=== PATIENT | male | born 1955 | race Caucasian/White ===

== ENCOUNTER 2018-01-06 13:00 | Emergency (ER) | payer OTHER ==
[~2018-01-06] VITALS: Ht 190.5 cm; Wt 107.0 kg
--- NOTE | 2018-01-06 14:01 | RAD ---
3 views right hand 01/06/2018 3:38 PM Indication: trauma Comparison: None Findings: There is anterior dislocation of the right fourth middle phalanx at the PIP joint. There is some proximal subluxation of the middle phalanx approximately 1 cm. No definitive fracture is identified. Impression: Anterior dislocation of the fourth middle phalanx at the PIP joint. Postreduction radiographs recommended
[2018-01-06] MEDS ORDERED: LIDOCAINE 2% 20 ML VIAL. IJ ONE (14:15)
[2018-01-06 14:26] LABS: CLARITY,URINE HAZY; COLOR,URINE YELLOW
[2018-01-06 14:27] LABS: BACTERIA,URINE FEW /HPF (0-FEW); BILIRUBIN,URINE NEG (NEG); GLUCOSE,URINE NEG (NEG); HYALINE CASTS, URINE OCC /HPF; NITRITE,URINE NEG (NEG); RBC,URINE OCC /HPF (0-2); SQUAMOUS EPITHELIAL CELL,UR OCC /LPF; UROBILINOGEN,URINE 0.2 mg/dL (0.2 mg/dL); WBC,URINE OCC /HPF (0-4)
--- NOTE | 2018-01-06 14:39 | PHYS DOC ---
Past History Past Medical History: No Pertinent History Past Surgical History: No Surgical History Alcohol Use: None Drug Use: None Adult General Chief Complaint Chief Complaint: MULTIPLE COMPLAINTS HPI HPI Patient is a 62 year old M who presents with injury to his right hand. Faizan was working with is worse when he suffered a pulling injury to his right hand. He feels that his fourth finger on his right hand is dislocated. He also notes a bruise on the left elbow and right posterior ribs. He denies abdominal pain. He denies difficulty breathing. He denies head or neck injury. He denies back pain. He has no other associated symptoms. He has no exacerbating or relieving factors. Review of Systems Review of Systems Constitutional: Denies fever or chills [] Eyes: Denies change in visual acuity, redness, or eye pain [] HENT: Denies nasal congestion or sore throat [] Respiratory: Denies cough or shortness of breath [] Cardiovascular: No additional information not addressed in HPI [] GI: Denies abdominal pain, nausea, vomiting, bloody stools or diarrhea [] : Denies dysuria or hematuria [] Musculoskeletal: Denies back pain Integument: Denies rash or skin lesions [] Neurologic: Denies headache, focal weakness or sensory changes [] Endocrine: Denies polyuria or polydipsia [] All other systems were reviewed and found to be within normal limits, except as documented in this note. Family History Family History No Pertinent family medical history was reported Current Medications Current Medications Current Medications Medications (Trade) Dose Ordered Sig/[facility] Start Time Stop Time Status Last Admin Dose Admin Lidocaine HCl 20 ml 1X ONCE 01/06/18 14:15 01/06/18 14:16 DC 01/06/18 14:15 20 ML Allergies Allergies Allergies Coded Allergies Type Severity Reaction Last Updated Verified No Known Drug Allergies 03/28/16 No Physical Exam Physical Exam Constitutional: Well developed, well nourished, no acute distress, non-toxic appearance. [] HENT: Normocephalic, atraumatic, Eyes: EOMI, conjunctiva normal, no discharge. [] Neck: Normal range of motion, no tenderness, supple, no stridor. [] Cardiovascular:Heart rate regular rhythm, no murmur [] Lungs & Thorax: Bilateral breath sounds clear to auscultation [] Abdomen: Bowel sounds normal, soft, no tenderness, no masses, no pulsatile masses. [] Skin: Warm, dry, no erythema, no rash. [] Back: No tenderness, no CVA tenderness. [] Extremities: No tenderness, no cyanosis, no clubbing, ROM intact, no edema. [] With the exception of swelling over the right fourth finger PIP joint consistent with dislocation Neurologic: Alert and oriented X 3, normal motor function, normal sensory function, no focal deficits noted. [] Psychologic: Affect normal, judgement normal, mood normal. [] Current Patient Data Vital Signs Vital Signs Date Time Temp Pulse Resp B/P (MAP) Pulse Ox O2 Delivery O2 Flow Rate FiO2 01/06/18 13:44 98.2 86 18 99 Room Air Lab Results Laboratory Tests Test 01/06/18 13:56 Urine Collection Type Unknown Urine Color Yellow Urine Clarity Hazy Urine pH 5.5 Urine Specific [place] 1.025 Urine Protein Neg (NEG-TRACE) Urine Glucose (UA) Neg mg/dL (NEG) Urine Ketones (Stick) Trace mg/dL (NEG) Urine Blood Neg (NEG) Urine Nitrite Neg (NEG) Urine Bilirubin Neg (NEG) Urine Urobilinogen Dipstick 0.2 mg/dL (0.2 mg/dL) Urine Leukocyte Esterase Neg (NEG) Urine RBC Occ /HPF (0-2) Urine WBC Occ /HPF (0-4) Urine Squamous Epithelial Cells Occ /LPF Urine Bacteria Few /HPF (0-FEW) Urine Hyaline Casts Occ /HPF Urine Mucus Slight /LPF EKG EKG [] Radiology/Procedures Radiology/Procedures X-ray right hand - anterior dislocation of the right fourth finger PIP Impressions: Procedure: 2% lidocaine was used to perform a digital block on the right fourth finger. Traction was applied and the PIP joint was reduced Course & Med Decision Making Course & Med Decision Making Pertinent Labs and Imaging studies reviewed. (See chart for details) Faizan denies abdominal pain. He had no pain on palpation. He states that he will return to the emergency room if he develops new or worsening symptoms. He declines further imaging. Imaging was offered due to potential risk for kidney injury with bruising on his right flank. He does not believe that he has an injury to his kidney and would not like to have the CT scan at this time Dragon Disclaimer Dragon Disclaimer This electronic medical record was generated, in whole or in part, using a voice recognition dictation system. Departure Departure: Impression: Primary Impression: Dislocation of PIP joint of finger Disposition: 01 HOME, SELF-CARE Condition: STABLE Referrals: SAMMIE SHAHID (PCP) Patient Instructions: Finger Dislocation Additional Instructions: Faizan was seen in the emergency department after an injury to his hand. No emergency medical condition was found on history or physical exam. He was found have a dislocation of his fourth finger on his right hand. His finger was numbed and the joint was reduced with traction. His finger was splinted. He is encouraged to return to the emergency room if he develops new or worsening symptoms. He is also advised follow-up with his primary care doctor as needed for further management. Problem Qualifiers Primary Impression: Dislocation of PIP joint of finger Encounter type: initial encounter Qualified Codes: S63.289A - Dislocation of proximal interphalangeal joint of unspecified finger, initial encounter NICHOLAS ARREDONDO MD Jan 06, 2018 14:39
[2018-01-06 14:53] VITALS: BP 153/94
== END 2018-01-06 14:54 | disposition home or self-care (01) ==
LOC: ER 13:00
DX: S63.284A Dislocation of proximal interphalangeal joint of right ring finger, initial encounter (principal); S50.01XA Contusion of right elbow, initial encounter; S20.211A Contusion of right front wall of thorax, initial encounter; X58.XXXA Exposure to other specified factors, initial encounter; Y93.89 Activity, other specified; Y99.8 Other external cause status; Y92.89 Other specified places as the place of occurrence of the external cause
CPT/HCPCS: 26770; 73130; 81001; 99285-25; J2001

== ENCOUNTER 2018-03-10 14:12 | Emergency (ER) | payer OTHER ==
[~2018-03-10] VITALS: Ht 190.5 cm; Wt 107.0 kg
--- NOTE | 2018-03-10 15:07 | RAD ---
KNEE RIGHT 3V, RIGHT FEMUR XRAY Clinical Indication: TRAUMA, HYPEREXTENDED RIGHT KNEE/LEG Comparison: None. Findings: Focal prominence of the lateral right femoral head/neck junction, correlate for femoral acetabular impingement. Hip joint is intact. No acute fracture the femur. Soft tissues unremarkable. Tricompartmental joint spaces are maintained in the knee. There is no joint effusion. Patella in anatomic position. There is no acute fracture. IMPRESSION: No acute fracture. Electronically signed by: Hudson Hollis MD (03/10/2018 3:04 PM) [id number]
[2018-03-10 15:39] VITALS: BP 114/86
--- NOTE | 2018-03-10 17:43 | ED.ADGEN ---
Past History Past Medical History: No Pertinent History Past Surgical History: No Surgical History Alcohol Use: None Drug Use: None Adult General Chief Complaint Chief Complaint Right leg injury HPI HPI Patient is a 62-year-old male who presents with right trying and leg injury after being kneed by a horse earlier today. Patient states when he fell backwards and hyperextended his right knee and felt/heard a popping sensation. Patient has since had difficulty ambulating and reports pain in his distal hamstring and calf muscle. He denies hitting his head, loss of consciousness, neck pain, chest pain, abdominal pain, flank pain, shortness of breath. No hip pain. Patient is not on anticoagulation therapy. Pain is reported to be mild but is under reported as patient is unable to fully weight-bear without grimace and limping. No other acute symptoms or complaints.] Review of Systems Review of Systems Review symptoms as per history of present illness. All other review symptoms are negative. All other systems were reviewed and found to be within normal limits, except as documented in this note. Allergies Allergies Allergies Coded Allergies Type Severity Reaction Last Updated Verified No Known Drug Allergies 03/28/16 No Physical Exam Physical Exam Constitutional: Well developed, well nourished, lethargic gait, moderate distress secondary to pain[] HENT: Normocephalic, atraumatic, bilateral external ears normal, oropharynx moist, no oral exudates, nose normal. [] Eyes: PERRLA, mild horizontal nystagmus. [] Neck: Normal range of motion, no tenderness. [] Cardiovascular:Heart rate regular rhythm, no murmur. [] Lungs & Thorax: Bilateral breath sounds clear to auscultation. [] Abdomen: Bowel sounds normal, soft, no tenderness. [] Skin: Warm, dry. [] Back: No tenderness. [] Extremities: Right lower extremity, distal hamstring pain, swelling, tenderness , no bruising, right calf pain, tenderness no swelling appreciated. No bruising , deformity, or pain on knee range of motion. Popliteal and ant tib pulse, 2+ and symmetric. Neurologically intact [] Neurologic: Alert and oriented X 3, lower extremity, no motor weakness or loss of sensation.. [] Psychologic: Affect normal, judgement normal, mood normal. [] Current Patient Data Vital Signs Vital Signs Date Time Temp Pulse Resp B/P (MAP) Pulse Ox O2 Delivery O2 Flow Rate FiO2 03/10/18 15:39 81 18 114/86 (95) 98 Room Air 03/10/18 14:26 97.9 EKG EKG [] Radiology/Procedures Radiology/Procedures [Right femur/tib-fib: No obvious displaced fracture per radiology report] Course & Med Decision Making Course & Med Decision Making Pertinent Labs and Imaging studies reviewed. (See chart for details) [Acute physical findings consistent with right lower extremity injury without fracture. No evidence of dislocation. Suspect contusion with sprain. Patient repeatedly asked he hit his head, torso denies injury but does report feeling initially nauseated secondary to pain. Nausea since resolved. Recommend supportive care with PCP follow-up. Return precautions reviewed. Patient verbalizes understanding treatment discharge instructions prior to departure.] Final Impression Final Impression 1. Right leg injury 2. Right calf injury] Dragon Disclaimer Dragon Disclaimer This electronic medical record was generated, in whole or in part, using a voice recognition dictation system. JEANNE GLASGOW DO March 10, 2018 17:43
== END 2018-03-10 15:40 | disposition home or self-care (01) ==
LOC: ER 14:12
DX: S89.91XA Unspecified injury of right lower leg, initial encounter (principal); W19.XXXA Unspecified fall, initial encounter; Y93.89 Activity, other specified; Y92.89 Other specified places as the place of occurrence of the external cause; Y99.8 Other external cause status
CPT/HCPCS: 29505; 73552; 73562; 99284